=== PATIENT | male | born 1980 | race African-American/Black ===

== ENCOUNTER 2017-10-28 15:55 | Emergency (ER) | payer SELFPAY ==
[~2017-10-28] VITALS: Ht 167.6 cm; Wt 70.0 kg
[2017-10-28 16:23] VITALS: BP 120/78
== END 2017-10-28 17:30 | disposition home or self-care (01) ==
LOC: ER 16:33
DX: R59.9 Enlarged lymph nodes, unspecified (principal); J02.9 Acute pharyngitis, unspecified; F12.10 Cannabis abuse, uncomplicated
CPT/HCPCS: 87070; 87430; 99283; 99284